=== PATIENT | female | born 1930 | race Caucasian/White ===

== ENCOUNTER 2017-02-02 11:13 | Inpatient (IN) | payer MEDICARE, OTHER ==
[~2017-02-02] VITALS: Ht 160 cm; Wt 65.0 kg
--- NOTE | ~2017-02-02 | HP ---
PATIENT'S NAME: ED HALL [facility] AGE: 87 Y [address] ROOM: [facility] [place] [address] [facility] AD[facility] DATE: 02/02/2017 History & Physical DISCHARGE DATE: FAMILY PHYSICIAN: Lenard Lamb MD ATTENDING PHYSICIAN: Rosie SHAFFER DATE OF SERVICE: ADDENDUM: Submassive PE. V/Q scan shows high probability for PE. Result was discussed with the patient and family member. All questions were answered. We will acquire lower extremity venous Doppler to assess for clots. If there is clot formation on venous Doppler evaluation, the patient might benefit from an IVC filter placement as I suspect another dislodge of clot to her lung would cause this submassive PE with right ventricular strain to be massive and detrimental. Thus, we will evaluate for IVC filter if there is significant clot on lower venous Doppler. DEENA DARDEN MD AD/modl /[id number] D: T: 033 HISTORY & PHYSICAL
--- NOTE | ~2017-02-02 | ENPV ---
Vascular Lower Extremities DVT Study Procedure Demographics Patient Name ED HALL Date of Study 02/03/2017 NEDA Patient Number [id number] Gender Female Date of 1930 Age 87 Visit Number [id number] Height Accession Number [id number] Weight Room Number G6336 BSA BMI Referring Andi Lo MD Interpreting Carlo Nieves MD Physician Physician Physician Ordering Physician Social Services Coordinator Clerk Secretary Мария Salas RUST Conclusions Summary Positive for acute DVT in the right peroneal calf vessel. Procedure Type of Study: Veins:Lower Extremities DVT Study, Venous Duplex Lower Extremity Bilateral. Appropriate Use Criteria:9 Patient Status:Routine. Study Location:Imaging Center. Velocities are measured in cm/s ; Diameters are measured in cm Right Lower Extremities DVT Study Measurements Right 2D and Doppler Measurements +---------+ + + + +------+--------+ !Location !Visualized!Compressibility!Thrombosis!Signal !Reflux!Reflux ! ! ! ! ! ! ! !(sec) ! +---------+ + + + +------+--------+ !GSV Thigh!Yes !Yes !None !Phasic !No ! ! +---------+ + + + +------+--------+ !Common !Yes !Yes !None !Phasic !No ! ! !Femoral ! ! ! ! ! ! ! +---------+ + + + +------+--------+ !Prox !Yes !Yes !None !Phasic !No ! ! !Femoral ! ! ! ! ! ! ! +---------+ + + + +------+--------+ !Mid !Yes !Yes !None !Phasic !No ! ! !Femoral ! ! ! ! ! ! ! +---------+ + + + +------+--------+ !Dist !Yes !Yes !None !Phasic !No ! ! !Femoral ! ! ! ! ! ! ! +---------+ + + + +------+--------+ !Popliteal!Yes !Yes !None !Phasic !No ! ! +---------+ + + + +------+--------+ !Gastroc !Yes !Yes !None !Phasic !No ! ! +---------+ + + + +------+--------+ !PTV !Yes !Yes !None !Phasic !No ! ! +---------+ + + + +------+--------+ !Peroneal !Yes !No !Acute !Diminished! ! ! +---------+ + + + +------+--------+ Left Lower Extremities DVT Study Measurements Left 2D and Doppler Measurements + + + + +------+------+ + !Location !Visualized!Compressibility!Thrombosis!Signal!Reflux!Reflux ! ! ! ! ! ! ! !(sec) ! + + + + +------+------+ + !GSV Thigh !Yes !Yes !None !Phasic!No ! ! + + + + +------+------+ + !Common !Yes !Yes !None !Phasic!No ! ! !Femoral ! ! ! ! ! ! ! + + + + +------+------+ + !Prox !Yes !Yes !None !Phasic!No ! ! !Femoral ! ! ! ! ! ! ! + + + + +------+------+ + !Mid Femoral!Yes !Yes !None !Phasic!No ! ! + + + + +------+------+ + !Dist !Yes !Yes !None !Phasic!No ! ! !Femoral ! ! ! ! ! ! ! + + + + +------+------+ + !Popliteal !Yes !Yes !None !Phasic!No ! ! + + + + +------+------+ + !Gastroc !Yes !Yes !None !Phasic!No ! ! + + + + +------+------+ + !PTV !Yes !Yes !None !Phasic!No ! ! + + + + +------+------+ + !Peroneal !Yes !Yes !None !Phasic!No ! ! + + + + +------+------+ + Impressions Right Impression Positive for acute DVT in the right peroneal calf vessel. Left Impression Negative for DVT Signature dtt: ANGELICA CASTELLANO dtd: 02/03/17 0634 Physician Self Clarissa
--- NOTE | ~2017-02-02 | DS ---
PATIENT'S NAME: ED HALL [facility] AGE: 87 Y [address] ROOM: [address]6336 [place] [address] LOCATION: [facility]PCU ADMIT DATE: 02/02/2017 Discharge Summary DISCHARGE DATE: 02/05/2017 FAMILY PHYSICIAN: Lenard Lamb MD ATTENDING PHYSICIAN: Richie Velez PRINCIPAL DIAGNOSES: 1. Acute pulmonary embolism. 2. Right distal deep vein thrombosis. 3. Submassive pulmonary embolism. 4. Elevated troponin. 5. Coronary artery disease. 6. Hypertension. 7. Sick sinus syndrome, status post permanent pacemaker placement. HOSPITAL COURSE: This is an 87-year-old female, presented with complaints of chest pain and shortness of breath and was progressively worsening and initially was evaluated for acute coronary syndrome as well as PE. The patient did have significant troponin elevation on presentation and also had an elevated D-dimer, which prompted an evaluation for PE. The patient subsequently underwent a V/Q scan, which showed a high probability for PE, and an echocardiogram also showed significant right ventricular dilation indicating submassive PE. The patient had been hemodynamically stable, however. Cardiology Service was involved at this point as well. The patient after this diagnosis was started on a heparin drip and the following day underwent a stress test to rule out ACS and stress test was negative. The patient also had a venous Doppler study, which showed distal right peroneal calf vessel DVT as well. Noting the patient's history of spontaneous subdural hematoma around 2004 and 2005, the patient was continued on a heparin drip during her hospital stay and monitored and did not appear to have any signs of bleeding and complications from heparin drip, and after a long discussion with the patient and the patient's who is also on Xarelto for AFib, the decision was made in agreement with the patient to switch to Xarelto, which has been done since last night, and the patient received 2 doses of Xarelto, and she has done well, and is going to continue this indefinitely. Noting the patient's history of spontaneous subdural hematoma, the patient was on aspirin for primary prevention of coronary artery disease, but since there is increasing evidence to minimize the use of antiplatelet agent with long-term anticoagulants like Xarelto, after discussing with the patient, I will hold her aspirin and have her followup with her primary care physician and discharge her on Xarelto, and the patient and the patient's are in agreement and satisfied with this. The patient is being discharged home in stable condition. I have spent a significant amount of time explaining the plan, and the patient currently is in satisfactory condition and is pleasantly awaiting to be discharged home. PATIENT'S NAME: ED HALL [facility] AGE: 87 Y [address] ROOM: [place] [address] [facility] ADMIT DATE: 02/02/2017 Discharge Summary DISCHARGE DATE: 02/05/2017 FAMILY PHYSICIAN: Lenard Lamb MD ATTENDING PHYSICIAN: Richie Velez PHYSICAL EXAMINATION: GENERAL: The patient is awake, alert, and oriented x3, in no acute distress. VITAL SIGNS: Stable. Afebrile. CHEST: Clear to auscultation bilaterally. HEART: S1, S2. Regular rate and rhythm. ABDOMEN: Soft, nontender, nondistended. EXTREMITIES: Without edema. NEURO: Nonfocal. MEDICATIONS: Per DEC. DIPOSITION: Home, and will follow up with primary care physician in 1 week. Greater than 30 minutes were spent in discharge planning and facilitating. MD MAXI CLAYTON/jimmy /[id number] d: 02/06/17 0658 t: 02/10/17 1419, DISCHARGE SUMMARY
--- NOTE | ~2017-02-02 | ECHO ---
Transthoracic Echocardiography Report (TTE) Demographics Patient Name ED HALL Date of Study 02/02/2017 NEDA Patient Number [id number] Visit Number [id number] Date of 1930 Room Number Gender Female Number Age 87 year(s) Referring Adonis Grace MD Dye Jig Operator Kylie RVT, RD Physician Lakeshia Physician Interpreting Tamica Yeboah User Support Analyst Supervisor Physician MD Supervising Ordering Domenico Delgado MD, MD/MLP Physician Nurse Stress Staff Genetic Counselor Conclusions Contractility Score Summary Normal Left Ventricular contractility was noted. Summary The estimated left ventricular ejection fraction is 60-65%. Mild to moderate concentric left ventricular hypertrophy. Diastolic assessment reveals Grade II pseudonormal diastolic function . The interventricular septum is flattened which is consistent with right ventricular pressure / and or volume overload. Dilated IVC with poor inspiratory collapse. Moderate to severely dilated right ventricle. Normal right ventricular systolic performance. Moderate-severe tricuspid regurgitation by color Doppler. There is severe pulmonary hypertension. The pulmonary pressure (RVSP) is 67 mmHg. Procedure Type of Study TTE procedure:2D Echocardiogram, M-Mode, Doppler , Color Doppler. Procedure Date Date: 02/02/2017 Start: 01:16 PM Study Location: ER Technical Quality: Adequate visualization Indications:Shortness of breath. Additional Indications:elevated D-dimer Appropriate Use Criteria: 9 Patient Status: STAT HR: 78 bpm BP: 160/61 mmHg M-Mode/2D Measurements Cardiac Output: 4.77 l/min AO Root Dimension: 2.5 cm AV Cusp Separation: 1.5 cm LA Dimension: 4 cm LA volume: 31 ml RV Base: 2.99 cm LVOT: 1.9 cm RV Mid: 2.98 cm LVOT VTI: 21.6 cm RV Length: 5.45 cm LV Stroke volume: 61.21 ml TAPSE: 1.9 cm TDI-S': 11.2 cm/s Doppler Measurements AV Peak Velocity: 1.23 m/s MV Peak E-Wave: 0.42 m/s AV Peak Gradient: 6.05 mmHg MV Peak A-Wave: 1.01 m/s AV Mean Gradient: 4 mmHg MV E/A Ratio: 0.42 LVOT Peak Velocity: 1.1 m/s MV P1/2t: 101 msec TR Gradient:56.85 mmHg PV Peak Velocity: 0.92 m/s Estimated RAP:10 mmHg PV Peak Gradient: 3.39 mmHg Estimated RVSP: 67 mmHg Estimated PASP: 66.85 mmHg E' Septal Velocity: 0.05 m/s A' Septal Velocity: 0.07 m/s E' Lateral Velocity: 0.05 m/s A' Lateral Velocity: 0.11 m/s Findings Left Ventricle Mild to moderate concentric left ventricular hypertrophy. Diastolic assessment reveals Grade II pseudonormal diastolic function . The interventricular septum is flattened which is consistent with right ventricular pressure / and or volume overload. Right Ventricle Moderate to severely dilated right ventricle. Normal right ventricular systolic performance. Left Atrium Normal left atrial size. Right Atrium The right atrium is mildly dilated. Mitral Valve Normal mitral valve structure and function. Aortic Valve Normal aortic valve structure and function. Tricuspid Valve Moderate-severe tricuspid regurgitation by color Doppler. There is severe pulmonary hypertension. The pulmonary pressure (RVSP) is 67 mmHg. Pulmonic Valve Normal pulmonic valve structure and function. Pericardial Effusion No evidence of pericardial effusion. Miscellaneous Dilated IVC with poor inspiratory collapse. Pleural Effusion No evidence of pleural effusion. Contractility Score LV regional wall motion:(0-Non visualized 1-Normal 2-Hypokinesis 3-Akinesis 4-Dyskinesis 5-Aneurysm) Signature dtt: Hailey Davey dtd: 02/02/17 8676 Physician Self Edit
--- NOTE | ~2017-02-02 | ESTC ---
Cardiac Perfusion Imaging Demographics Patient Name ISABEL WARD Gender Female NEDA Patient Number [id number] Race Visit Number [id number] Ethnicity Corporate ID Room Number G6336 Accession Number [id number] Height 63 inches Date of 1930 Weight 148.6 pounds Physician Edilia QUINONEZ Interpreting Michele Pimentel Date of study 02/04/2017 Physician Supervising Sandra RUHT MD/MAKSIM Technologist Ordering Efstratiou Panayotis Stress Rothenberger RVT, Physician A brewing technician RDCS Lakeshia Stress ECG Sandra Payne APRN Nurse Yadi Lo RN Reading Physician Procedure Procedure Type: Nuclear Stress Test:Pharmacological, Lexiscan, Cardiolite Stress Test Procedure Start time: 02/04/2017 08:06 Indications: Elevated Troponin. Risk Factors The patient risk factors include:treated hypercholesterolemia, treated hypertension and dyslipidemia. Conclusions Summary Perfusion Images: The overall quality of the study is good. Left ventricular cavity is noted to be normal on the stress and rest studies. There is no evidence of abnormal lung activity. The right ventricle is not visualized and cannot be assessed. Stress SPECT images demonstrate homogenous tracer distribution throughout the myocardium. Rest SPECT images demonstrate decrease uptake in the area involving the septal and inferior wall likely due to artifact. Gated SPECT imaging reveals hyperdynamic left ventricle. The left ventricular ejection fraction was calculated to be 87%. Impression ECG portion of stress test is clinically negative for ischemia by diagnostic criteria. Myocardial perfusion imaging is probably normal. The inferior and septal wall defect seen only on rest images with preserved wall motion is consistent with artifact. Overall left ventricle is hyperdynamic without regional wall motion abnormalities. Stress Protocols Resting ECG Sinus rhythm with PAC's Pre-stress physical exam: Patient assessed by Jamey JEFFERS prior to testing. Predicted HR: 132 bpm HR response: Appropriate BP response: Appropriate Reason for termination:Infusion complete ECG Findings No ECG changes suggestive of ischemia. Arrhythmias No worsening rhythm abnormality. Symptoms Shortness of breath. Nausea. Complications Procedure complication: None. Stress Interpretation Appropriate hemodynamic response to Lexiscan. No significant ST-T wave changes with Lexiscan. ECG portion is negative for ischemia by diagnostic criteria. Will correlate with nuclear images. Imaging Results Summed scores - Summed stress score: 14 - Summed rest score: 12 - Summed difference score: 2 Stress ejection Ejection fraction:85 % EDV :41 ml ESV :6 ml Stroke volume :35 ml LV mass :81 gr Imaging Protocols Rest Stress Isotope:Tc99m Sestamibi IV Isotope: Tc99m Sestamibi IV Isotope dose:10.1 mCi Isotope dose:32.3 mCi Date:02/04/2017 07:40 Date:02/04/2017 09:10 Technique: SPECT Technique: Gated Supine SPECT Supine Scan Time:45-60 minutes post Scan Time:45-60 minutes post injection injection Procedure Medications - Regadenoson (Lexiscan) 0.4 mg IV over 10-15 sec. I.V. . Medical History Admission Data Admission date: 02/02/2017 Admission Time: 13:21 Hospital Status: Inpatient. Signatures dtt: KARYN LEONARD dtd: 02/04/17 0806 Physician Self Edit
--- NOTE | ~2017-02-02 | HP ---
[facility] 87 Y [address] ROOM: [place] [address] LOCATION: GPCU ADMIT DATE: 02/02/2017 History & Physical DISCHARGE DATE: FAMILY PHYSICIAN: Lenard Lamb MD ATTENDING PHYSICIAN: Rosie SHAFFER DATE OF SERVICE: CHIEF COMPLAINT: Shortness of breath. HISTORY OF PRESENT ILLNESS: The patient is an 87-year-old female with past medical history of hypertension, hypothyroidism, and sick sinus syndrome, status post pacemaker, who presents here with shortness of breath. The patient reports that for the past three days, she has been experiencing dyspnea on exertion and fatigue. The patient was recently at [place] and came here today from [place]. The family were driving from [place] to [place], [place] when she was having this experience. She reports of dizziness, shortness of breath, dyspnea on exertion, and fatigue, and her symptoms are progressively getting worse. She denies any chest pain, productive cough, dry cough, fever, chills, abdominal pain, nausea, vomiting, and diarrhea. The patient has been living in [place] and [place] on and off for the past few years. She follows Dr. Weinberg as an outpatient. PAST MEDICAL HISTORY: Hypertension, hypothyroidism sick sinus syndrome, status post pacemaker. PAST SURGICAL HISTORY: 1. TKA of bilateral knee. 2. Pacemaker placement. 3. Subdural hematoma exploration in 2004. 4. Hand surgery. FAMILY HISTORY: Denies of any significant family history. SOCIAL HISTORY: She is nonsmoker and she lives with her and spent time between [place] and [place]. ALLERGIES: CURRENTLY NO KNOWN ALLERGY SEEN. PATIENT'S NAME: ED HALL [facility] AGE: 87 Y [address] ROOM: [address] [address] LOCATION: GPCU ADMIT DATE: 02/02/2017 History & Physical DISCHARGE DATE: FAMILY PHYSICIAN: Lenard Lamb MD ATTENDING PHYSICIAN: Rosie SHAFFER MEDICATIONS: See MAR. REVIEW OF SYSTEMS: Ten points review of system was evaluated, negative except what is stated on HPI. PHYSICAL EXAMINATION: VITAL SIGNS: Blood pressure of 107/59, heart rate of 84, the patient is afebrile, respiratory rate of 18, saturating 92% on room air. GENERAL APPEARANCE: The patient is alert and awake in no acute distress. HEAD: Normocephalic, atraumatic. EYES: Extraocular muscle intact. Sclerae nonicterus. NECK: Supple. EARS: She has a hearing aid. NOSE: No nasal discharge. LUNGS: Mild bibasilar rales. No wheezing or rhonchi heard. HEART: Regular rate rhythm. No MRG. Mild JVD noted. ABDOMEN: Soft, nontender, nondistended. Bowel sounds present. LOWER EXTREMITY: No edema noted. SKIN: Warm to touch. LAPPING MACHINE SET UP OPERATOR: The patient is alert and oriented. Motor and sensory grossly intact. DATA: Chest x-ray rays shows pacemaker. No cardiopulmonary changes. EKG shows deep T-wave inversion on precordial leads TV1-V4 with Q-wave changes on 3 and aVF and also sinus rhythm. BNP of 0.159, [place] [address], CPK of 59. Potassium of 3.6, creatinine of 1.3, and a BUN of 33. Hemoglobin of 11.8, white blood cell count of 12.5, and platelet of 288. Elevated D-dimer of 2.74. ASSESSMENT AND PLAN: The patient is an 87-year-old female with past medical history of hypertension, hypothyroidism and sick sinus syndrome, status post pacemaker placement, who presents to our emergency department after a travel from [place] with chief complaint of dyspnea on exertion and fatigue. 1. Submassive PE. Currently, this diagnosis is clinical diagnosis. The patient is presenting with history of travel and worsening of shortness of breath with dyspnea on exertion. Initial EKG shows right ventricular heart strain with P-wave and inversion on V1 to V4 in the precordial leads and highly elevated D-dimer. Bedside echo shows elevated right ventricular pressure. On examination, the patient does not seem to be in hypervolemia with at least decompensated left ventricular heart failure as chest x-ray [place]. [place] [address], I suspect this PATIENT'S NAME: ED HALL [facility] AGE: 87 Y [address] ROOM: [place] [address] [facility] AD[facility] DATE: 02/02/2017 History & Physical DISCHARGE DATE: FAMILY PHYSICIAN: Lenard Lamb MD ATTENDING PHYSICIAN: Rosie SHAFFER is mainly coming from the right ventricular. Coronary artery disease also was entertained, but, however, it is prudent first to rule out submassive PE. We will acquire V/Q scan as the patient has elevated creatinine and is unable to get CT angiogram. If V/Q scan shows signs of PE, we will discuss case with Cardiology for a possible catheter-directed thrombolysis with tPA. The patient currently is stable of vital signs, blood pressure is stable, and she is saturating 92% on room air. Due to history of subdural hematoma, which is spontaneous, we will acquire CT head out of CTA to rule out if there is any underlying bleeding before we start our high-dose heparin drip. We will follow patient closely. We will keep the patient n.p.o. and we will await for V/Q scan and CT head. 2. NSTEMI type 2, elevated troponin most likely secondary to RV strain. We will start patient on heparin drip. If V/Q scan is unremarkable, we will commence with coronary angiogram evaluation. Cardiology on board. 3. NITHYA. Etiology most likely secondary to poor oral intake and also newly elevated right ventricular pressure. We will start patient on IV fluids. We will hold any antihypertensive medication and follow renal function daily. 4. Hypertension, stable, we will hold BP medication. 5. Hypothyroidism. Continue Synthroid. 6. DVT prophylaxis, on heparin drip. 7. I discuss finding and working diagnosis with the patient and her . On admission, the patient is full code. Greater than 30 minutes spent on plan and care of this patient. MD UVALDO TONEY/jimmy /[id number] D: T: HISTORY & PHYSICAL
--- NOTE | ~2017-02-02 | ER ---
PAT[facility] AGE: 87 Y [address] ROOM: [place] [id number] LOCATION: GPCU ADMIT DATE: 02/02/2017 ER/Outpatient Report DISCHARGE DATE: FAMILY PHYSICIAN: Lenard Lamb MD ATTENDING PHYSICIAN: Rosie QUIROZ Time of Arrival: 1113 hours. Time of Evaluation: 1130 hours. IDENTIFICATION: An 87-year-old female. CHIEF COMPLAINT: Shortness of breath. HISTORY OF PRESENT ILLNESS: The patient is an 87-year-old female from [place], but they do go to [place] for 6 months of the year and just arrived home. She said since yesterday, she has just had trouble getting her breath. Her said 2 days ago, she had a pain in her back, felt like someone had "punched her" in the back. Currently, she denies any pain. She just feels like she cannot get enough air. She has had no fever. She has had no cough. PAST MEDICAL HISTORY: ALLERGIES: BETADINE, IODINE, AND SULFA. CURRENT MEDICATIONS: 1. Metoprolol 50 mg daily. 2. Levothyroxine. 3. Fenofibrate. 4. Myrbetriq. 5. Losartan and hydrochlorothiazide. 6. Citalopram. 7. Lorazepam. 8. B12. 9. Baby aspirin. 10. Calcium. 11. Pepcid AC. MEDICAL PROBLEMS: Hypertension; hypothyroidism; and sick sinus syndrome, status post pacemaker. PRIOR SURGERIES: PATIENT'S NAME: [facility] AGE: 87 Y [address] ROOM: [place] [address] LOCATION: GPCU ADMIT DATE: 02/02/2017 ER/Outpatient Report DISCHARGE DATE: FAMILY PHYSICIAN: Lenard Lamb MD ATTENDING PHYSICIAN: Rosie QUIROZ Pacemaker; TKA, bilateral knee; subdural hematoma exploration in 2004; and hand surgery. FAMILY HISTORY: No pertinent family history identified. SOCIAL HISTORY: The patient is . She lives 6 months of the year in [place] and 6 months of the year in [place]. Tobacco use, denies. Alcohol use, denies. They did just return home from [place] via car with their children, however, they did stop and get out every 2 hours. REVIEW OF SYSTEMS: All systems reviewed and negative other than what is noted in the HPI. The patient denies any increased swelling in her legs. PHYSICAL EXAMINATION: VITAL SIGNS: Weight 67.4 kg, blood pressure 107/59, pulse 84, respirations 16, temperature 99.4, and saturations 92% on room air. The patient was placed on O2 at 2 L per nasal cannula. GENERAL: An 87-year-old female, very pale in color, in no acute distress. HEENT: Unremarkable. LUNGS: Clear to auscultation. HEART: Regular rate and rhythm. ABDOMEN: Soft, nondistended, and nontender. SKIN: [place], warm, and dry. No lesions or rashes noted. EXTREMITIES: Trace edema. No calf tenderness. No Hom[place]. LABORATORY DATA AND X-RAYS: ProBNP 20,275. D-dimer elevated at 2.74. Sodium 142, potassium 3.6, chloride 108, CO2 of 19, BUN 33, creatinine 1.3, blood sugar 141, GFR 39, magnesium 2.4, CPK 59, CK-MB 2.5, and troponin I 0.159. Hemoglobin 11.8, hematocrit 36.8, platelets 288, and white count 12.5 with a normal differential. INR 1.06. EKG showed normal sinus rhythm at 81 beats per minute; no ST elevation or depression, but she has very significant T-wave inversion from V1 to V4; flattened T-waves in V5; T-wave inversion noted in lead III; Q-waves in lead III and F. Two-hour troponin I is 0.173. Two-hour CK-MB is 2.6. One view chest x-ray showed no acute process, pending Radiology over-read. EMERGENCY DEPARTMENT COURSE: At this point, with her EKG changes, Dr. Davey of Cardiology was consulted immediately as well as hospitalist. The patient has no contraindication to anticoagulation. Heparin per protocol was ordered, but with her history of chronic subdural, the head CT was obtained first, showing no acute abnormalities. Echocardiogram was done at the bedside showing RV PATIENT'S NAME: [facility] AGE: 87 Y [address] ROOM: [id number] [place] [id number] LOCATION: [facility] ADMIT DATE: 02/02/2017 ER/Outpatient Report DISCHARGE DATE: FAMILY PHYSICIAN: Lenard Lamb MD ATTENDING PHYSICIAN: Rosie QUIROZ. VQ scan shows high probability of PE, which was relayed to Dr. Quiroz. IMPRESSION AND PLAN: 1. Submassive pulmonary embolism. Heparin per deep venous thrombosis/pulmonary embolism protocol. 2. Uyb-OL-julopaiav myocardial infarction. Cardiology has been consulted. The patient is on heparin. 3. Acute kidney injury. 4. Hypertension. 5. Hypothyroidism. Dr. Quiroz and Dr. Davey both evaluated the patient in the emergency room. She arrived to the emergency room at 1113 hours, was taken to PCU at 1631 hours, and 40 minutes of critical care was provided with this patient. CAITLIN JEWELL MD CAR/modl /[id number] d: 02/03/17 1904 t: 02/07/17 0757, OUTPATIENT REPORT
[2017-02-02 11:54] LABS: BASOPHIL % 0.2 %; EOSINOPHIL # 0.2 K/uL (0.0-0.5); EOSINOPHIL % 1.3 %; HEMATOCRIT 36.8 % (30.0-46.0); HEMOGLOBIN 11.8 g/dL (10.0-15.0); IMMATURE GRANULOCYTE # 0.1 K/uL (0.0-0.3); IMMATURE GRANULOCYTE % 0.8 %; LYMPHOCYTE # 2.4 K/uL (0.8-4.0); LYMPHOCYTE % 18.9 %; MCH 26.1 pg (27.0-34.0); MCHC 32.1 gm/dL (32.0-36.5); MCV 81.4 fl (83.0-98.0); MONOCYTE # 1.3 K/uL (0.0-1.0); MONOCYTE % 10.6 %; MPV 10.5 fl (9.4-12.4); NEUTROPHIL # (ANC) 8.5 K/uL (1.8-7.8); NEUTROPHIL % 68.2 %; NRBC % 0 /100WBC (0-0.00); PLATELET COUNT 288 K/uL (150-450); RBC 4.52 M/uL (3.00-5.00); RDW-CV 19.9 % (11.9-14.6); WBC 12.5 K/uL (4.0-11.0)
[2017-02-02 12:06] LABS: INR - (THERAPEUTIC) 1.06 (0.92-1.07); PROTIME 11.1 SECONDS (9.8-11.4); PTT 25 SECONDS (25-32)
[2017-02-02 12:15] LABS: ALBUMIN 3.4 gm/dL (3.5-5.0); ANION GAP 18.6 (10.0-19.0); CALCIUM 9.2 mg/dL (8.5-10.5); CREATININE 1.3 mg/dL (0.5-1.1); MAGNESIUM 2.4 mg/dL (1.3-2.6); POTASSIUM 3.6 mMol/L (3.7-5.1); TOTAL BILIRUBIN 0.4 mg/dL (0.0-1.5); TOTAL PROTEIN 6.7 g/dL (6.0-8.4)
--- NOTE | 2017-02-02 18:32 | NUR ---
Patient admited to PCU for PE's. On 3L NC, lungs clear/dim, but RLL fine crackles. Up SBA to commode, needs walker, leans forward. HOPI. On heparin gtt at 1,000 units/hr, next ptthp at 2115. Trending enzymes. Will have venous duplex of bilater legs in AM. Patient does have hx of subdural head bleed. Needs bed alarm at all times, A&O x3.
[2017-02-02] MEDS ORDERED: TOPROL XL 5050 MG PO (19:00)
[2017-02-02] MEDS ORDERED: LEVOTHROID (SY50 MCG PO (19:01)
[2017-02-02] MEDS ORDERED: TRICOR 160 MG160 MG PO (19:02)
[2017-02-02] MEDS ORDERED: MYRBETRIQ50 MG PO (19:03)
[2017-02-02] MEDS ORDERED: HYZAAR 100-12.1 EACH PO (19:04)
[2017-02-02] MEDS ORDERED: VITAMIN B-12500 MCG PO (19:05)
[2017-02-02] MEDS ORDERED: ZOLOFT25 MG PO (19:05)
[2017-02-02] MEDS ORDERED: ATIVAN 0.5MG0.5 MG PO (19:05)
[2017-02-02] MEDS ORDERED: OSCAL500 MG PO (19:06)
[2017-02-02] MEDS ORDERED: PEPCID AC10 MG PO (19:06)
[2017-02-02] MEDS ORDERED: ASPIRIN (CHILDR81 MG PO (19:06)
--- NOTE | 2017-02-03 04:17 | NUR ---
Pt a/o x4. extremely [place]. on strict bedrest. vss on 2L, afebrile. heparin gtt at 900, next ptthp at 0900. ns at 100. denies pain. Plan: ble doppler then depending on findings possible IVC filter placemnt
[2017-02-03 07:25] LABS: ANION GAP 10.7 (10.0-19.0); CREATININE 1.1 mg/dL (0.5-1.1); POTASSIUM 3.7 mMol/L (3.7-5.1)
[2017-02-03] MEDS ORDERED: KLONOPIN0.5 MG PO (09:23)
[2017-02-03] MEDS ORDERED: CELEXA20 MG PO (09:25)
--- NOTE | 2017-02-03 12:04 | NUR ---
Introduced self and role of care management to patient, and niece. They live in [place]. She just returned home from [place]. She states that she is able to do all her own ADL's. She does use a walker s/t her "balance problems." She states that her is available to assist as needed. They plan on her returning home on discharge. She denies any needs at this time. Will continue to follow.
[2017-02-03] MEDS ORDERED: RESTFUL LEGS PO (15:39)
--- NOTE | 2017-02-03 17:28 | NUR ---
Significant events: Patient alert and oriented x 3. Pleasant. Bedrest this AM. NPO this AM. Heart paced. Denies pain and shortness of breath. Venous doppler his AM, R calf DVT. 1415 - Now up with assitance to the bathroom. Good appetite. Lungs clear and diminished. 2L o2. Bowel sounds active. BM today. Follow up: Stress test tomorrow. Continue plan of care.
--- NOTE | 2017-02-04 04:49 | NUR ---
Pt a/o. vss on RA-1L at rest-needs at least 2 for ambulation. afebrile. con't on heparin gtt for PE/DVT at 900 units/hr. next ptthp at 1100. NS at 100. NPO for nuc stress. up with fww. Plan: nuc stress
--- NOTE | 2017-02-04 16:10 | NUR ---
SIGNIFICANT EVENT: PATIENT RECIEVED NEGATIVE STRESS TEST RESULTS TODAY. DENIES SOB, 02 TITRATED DOWN TO ROOM AIR AT 15:00, AMBULATES WITH 2L O2, SBA, GAIT BELT, WALKER. HEPARIN DRIP RUNNING AT 1000 UNITS/HR. DENIES PAIN. BPS 150S/70S, HR 70-80, AFEBRILE. POSSIBLE D/C HOME TOMORROW.
--- NOTE | 2017-02-05 04:47 | NUR ---
slept all noc. voided a couple of times. IV SL. RA-1L with ambulation. VSS afebrile. started xarelto. denies pain Plan: ? d/c today?
[2017-02-05 05:33] LABS: BASOPHIL % 0.3 %; EOSINOPHIL # 0.3 K/uL (0.0-0.5); EOSINOPHIL % 2.8 %; HEMATOCRIT 35.6 % (30.0-46.0); HEMOGLOBIN 11.1 g/dL (10.0-15.0); IMMATURE GRANULOCYTE # 0.1 K/uL (0.0-0.3); LYMPHOCYTE % 28.8 %; MCH 26.1 pg (27.0-34.0); MCHC 31.2 gm/dL (32.0-36.5); MCV 83.6 fl (83.0-98.0); MONOCYTE # 1.2 K/uL (0.0-1.0); MONOCYTE % 11.5 %; MPV 10.3 fl (9.4-12.4); NEUTROPHIL # (ANC) 5.9 K/uL (1.8-7.8); NEUTROPHIL % 55.6 %; NRBC % 0 /100WBC (0-0.00); PLATELET COUNT 312 K/uL (150-450); RBC 4.26 M/uL (3.00-5.00); RDW-CV 19.5 % (11.9-14.6); WBC 10.5 K/uL (4.0-11.0)
[2017-02-05 05:50] LABS: ALBUMIN 3.2 gm/dL (3.5-5.0); ANION GAP 11.6 (10.0-19.0); CALCIUM 8.8 mg/dL (8.5-10.5); PHOSPHORUS 2.2 mg/dL (2.5-4.9); POTASSIUM 3.6 mMol/L (3.7-5.1)
[2017-02-05] MEDS ORDERED: LIPITOR40 MG PO (12:21)
[2017-02-05] MEDS ORDERED: XARELTO15 MG PO (12:28)
--- NOTE | 2017-02-05 13:28 | NUR ---
Significant Event: A/O x3, cooperative with cares. VSS, SBPs 130-140s, HRs 80s, on room air. No c/o pain. Up with walker et assist of 1 to bathroom et chair. Dimissal instructions given to patient et , verbalized understanding. Dismissed to front lobby per w/c accompanied by certified nursing attendant et . Follow up:
== END 2017-02-05 12:55 | disposition disaster alternative care site (69) | DRG 176 ==
LOC: GMED 11:13 → GPCU 13:20
PROVIDERS: Family Medicine; Internal Medicine; Internal Medicine Cardiovascular Disease; ADMIT Internal Medicine
PROC: B246ZZZ Ultrasonography of Right and Left Heart (ICD-10-PCS; principal; 2017-02-02)
DX: I26.99 Other pulmonary embolism without acute cor pulmonale (principal); N17.9 Acute kidney failure, unspecified; I49.5 Sick sinus syndrome; I82.401 Acute embolism and thrombosis of unspecified deep veins of right lower extremity; E03.9 Hypothyroidism, unspecified; I10 Essential (primary) hypertension; I25.10 Atherosclerotic heart disease of native coronary artery without angina pectoris; Z95.0 Presence of cardiac pacemaker
CPT/HCPCS: A9500; A9539; A9540; J1200; J1644; J1940; J2785; J2920; J7030; J7060